=== PATIENT | female | born 1950 | race Caucasian/White ===

== ENCOUNTER 2023-02-09 11:28 | Outpatient (REF) | payer MEDICARE, BC, SELFPAY ==
[2023-02-09 14:07] LABS: Hematocrit 43.2 % (37.0-47.0); Hemoglobin 14.2 g/dl (12.0-16.0); Mean Corpuscular HGB Conc 32.9 g/dl (31.0-35.0); Mean Corpuscular Hemoglobin 30.2 pg (27.0-33.0); Mean Corpuscular Volume 91.9 fL (80.0-98.0); Mean Platelet Volume 10.7 fL (9.4-12.3); Platelet Count 334 X10*3/uL (160-400); Red Cell Distribution Width 11.9 % (11.0-16.0); White Blood Count 7.3 X10*3/uL (4.8-10.8)
[2023-02-09 14:29] LABS: Alanine Aminotransferase 15 U/L (0-31); Albumin Level 4.5 g/dL (3.5-5.0); Alkaline Phosphatase 85 U/L (39-117); Anion Gap 10 (12-20); Aspartate Amino Transferase 13 U/L (5-31); Bilirubin Total 0.6 mg/dL (0.0-1.0); Blood Urea Nitrogen 16 mg/dL (9-16); Calcium 10.6 mg/dL (8.4-10.2); Carbon Dioxide 28 mmol/L (22-29); Chloride 108 mmol/L (96-108); Cholesterol 168 mg/dL; Estimated Glomerular Filt Rate > 60; Glucose Fasting 106 mg/dL (60-99); HDL Cholesterol 46 mg/dL; LDL Cholesterol Calculated 79 mg/dl; Potassium 4.2 mmol/L (3.3-5.1); Sodium 142 mmol/L (135-145); Total Protein 7.2 g/dL (6.5-8.0); Triglycerides 217 mg/dL
[2023-02-09 14:34] LABS: TSH reflex Free T4 4.05 uIU/mL (0.32-4.0)
[2023-02-09 15:07] LABS: Free T4 (Free Thyroxine) 0.95 ng/dL (0.71-1.85)
== END 2023-02-09 11:29 | disposition home or self-care (01) ==
LOC: HO.HMGCLDS 11:28
PROVIDERS: PCP Hospitalist; Visit Provider Hospitalist
DX: Z00.00 Encounter for general adult medical examination without abnormal findings (principal)
CPT/HCPCS: 36415; 80053; 80061; 84439; 84443; 85027

== ENCOUNTER 2023-12-03 16:04 | Outpatient (AMB) | payer MEDICARE, BC, SELFPAY ==
--- NOTE | 2023-12-03 16:08 | A.OFFPC_ITS ---
Vital Signs 12/03/23 16:09 Height 5 ft 2 in Weight 134 lb 6 oz BMI 24.6 BP 134/76 Blood Pressure Location Rt brachial Position Sitting Respiration 13 Pulse 67 Pulse Source Pulse Oximeter Temp 98 F Temp Source Temporal Artery Scan Pulse Oximetry (%) 94 Oxygen Delivery Method Room Air Intake Visit Reasons: Transfer Of Care Dr. 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: No Accompanied by: Self / Same As Patient Allergies Seasonal Allergies Allergy (Severe, Verified 12/03/23 16:31) Wheezing Penicillins Allergy (Mild, Verified 12/03/23 16:31) Rash Medication List - Last Reconciled 12/03/23 by Stu Rawls CNP albuterol sulfate 90 mcg/actuation 2 puffs inhalation Q4-6H PRN aspirin 81 mg PO DAILY atorvastatin 40 mg PO DAILY losartan 100 mg PO DAILY melatonin 2.5 mg PO TID PRN pumthkswrakv-irlvnwfi-gwdmti 1 tab PO DAILY oxybutynin chloride ER 5 mg PO DAILY psyllium husk (aspartame) 3.4 gram/5.8 gram (Metamucil [facility] Fiber) PO sertraline 100 mg PO DAILY trazodone 50 mg PO BID PRN 1 month umeclidinium-vilanterol 62.5-25 mcg/actuation (Anoro Ellipta) 1 inh inhalation DAILY 1 month Tobacco use date assessed: 12/03/23 Fall risk assessment: No Falls in past year Last assessed Fall Risk: 12/03/23 Dental Screening Dental Screen Date: 12/03/23 Did you have a dental visit in the last 12 months?: No Did you have a dental problem in the last 6 months where you did not have access to dental care?: No Was dental information given to patient?: Patient declined HPI HPI Comments History of Present Illness Details 73-year-old female presents for transfer of care Her former PCP is TC who is no longer with the practice She has history of hypertension, hypercholesterolemia, COPD, asthma, acid reflux, memory loss, overactive bladder, anxiety, and depression She is not followed by a therapist or psychiatrist. She had therapy in the past but did not find it useful She admits to taking her medications as prescribed without adverse reactions She reports sudden onset of right-sided back which started about a week ago and has progressively worsened. He described the pain as a constant ache. She took 200mg of Ibuprofen the past 2 night with minimal relief. He denies fall, injury, or trauma She reports difficulty breathing daily since she relocated to [facility] past 2 years ago. She has been using Anoro Ellipta with some improvement She also reports persistent tingling and numbness to both feet for the past 2 years [facility] Medical History (Updated 12/03/23 @ 16:57 by Stu Rawls CNP) Tremors of nervous system Acid reflux Incontinence Hypercholesterolemia Hypertension Depression Anxiety Memory loss Asthma COPD (chronic obstructive pulmonary disease) Surgical History No pertinent past surgical history Family History Mother Cardiovascular disease Asthma Hypertension Hypercholesterolemia Brother Psychiatric illness Social History Housing: Apartment Alcohol intake: never Patient Tobacco Use Status: Former Tobacco user e-Cigarette/Vaping Use: Never Used Current occupational status: disabled Questionnaire PHQ-9 Over the last 2 weeks, how often have you been bothered by any of the following problems? 1. Little interest or pleasure in doing things: nearly every day 2. Feeling down, depressed, or hopeless: several days 3. Trouble falling or staying asleep, or sleeping too much: several days 4. Feeling tired or having little energy: several days 5. Poor appetite or overeating: several days 6. Feeling bad about yourself - or that you are a failure or have let yourself or your family down: several days 7. Trouble concentrating on things, such as reading the newspaper or watching television: several days 8. Moving or speaking so slowly that other people could have noticed. Or the opposite - being so fidgety or restless that you have been moving around a lot more than usual: not at all 9. Thoughts that you would be better off or of hurting yourself in some way: not at all Total score: 9 Depression Screening Interpretation: Positive Depression Screening Follow-up: Existing condition and In treatment Depression Screening Done: Yes 42725 - PHQ-9 Billing: Yes Source: Developed by Drs. Hang Murdock, Rani Cowan, Ralph Talbert and colleagues, with an educational edgar from [employer]. Thrive Questionnaire Date Thrive assessed: 12/03/23 I am a: Patient What is your living situation today?: I have a steady place to live Within the past 12 months, did the food you bought not last and you didn't have the money to get more?: Never true Within the past 12 months, did you worry whether your food would run out before you got money to buy more?: Never true Do you have trouble paying for medicines?: No Do you have trouble getting transportation to medical appointments?: No Do you have trouble paying your heating and electricity bill?: No Do you have trouble taking care of your child, family member or friend?: No Do you have trouble with day-to-day activities such as bathing, preparing meals, shopping, managing finances, etc.?: Yes Are you currently unemployed and looking for a job?: No Are you interested in more education?: No Please select the resources that you would like help with: Daily support Currently or been in a relationship where the following occur: no concerns reported THRIVE Score: 0 AUDIT C Alcohol Use Questionnaire (AUDIT-C) 1. How often do you have a drink containing alcohol?: Never 3. How often do you have six or more drinks on one occasion?: Never Total Score: 0 LEONILA-7 AMB Questionnaire LEONILA-7 Date LEONILA - 7 assessed: 12/03/23 Feeling nervous, anxious, or on edge: 1 = Several days Not being able to stop or control worryin = Several days Worrying too much about different things: 1 = Several days Trouble relaxin = Nearly every day Being so restless that it is hard to sit still: 1 = Several days Becoming easily annoyed or irritable: 1 = Several days Feeling afraid as if something awful might happen: 0 = Not at all Total LEONILA-7 score (0-4 normal; 5-9 mild; 10-14 moderate; 15-21 severe): 8 Source: Developed by Drs. Hang Murdock, Rani Cowan, Ralph Talbert and colleagues, with an educational edgar from [employer]. LEONILA-7 Assessment Billing LEONILA-7 Assessment Tool: LEONILA-7 Assessment 91641 ACT Questionnaire In the past 4 weeks, how much of the time did your asthma keep you from getting as much done at work, school or at home?: All of the time During the past 4 weeks, how often have you had shortness of breath?: More than once a day During the past 4 weeks, how often did your asthma symptoms wake you up at night or earlier than usual in the morning?: Not at all During the past 4 weeks, how often have you had to use your rescue inhaler or nebulizer medication?: Not at all How would you rate your asthma control during the past 4 weeks?: Well controlled ACT Interpretation: Positive Score: 16 Review of Systems Const Details: Const Denies chills, Denies fatigue, Denies fever(s), Denies headache(s) and Denies weakness ENT Denies dizziness and Denies headache(s) Card Denies chest pain, Denies lightheadedness, Denies dyspnea and Denies other (Palpitations) Resp Denies cough, Denies dyspnea, Denies wheezing and Denies other ( shortness of breath) GI Denies abdominal pain, Denies melena, Denies hematochezia, Denies change in bowel habits, Denies dyspepsia and Denies nausea Denies hematuria and Denies dysuria Musc Reports as per HPI Skin/Breast Denies rash, Denies unusual bruising and Denies wounds Neuro Denies abnormal gait, Denies dizziness, Denies headache(s), Denies memory loss, Denies numbness, Denies Sensory deficit (Neuro), Denies tingling and Denies weakness Psych Denies anxiety, Denies depression, Denies memory loss Endo Denies cold intolerance, Denies fatigue, Denies heat intolerance, Denies polydipsia and Denies polyuria Aller/Immun Denies wheezing Physical exam (Primary Care) Tobacco/Smoking Status: Tobacco use Status Tobacco use date assessed 01/03/23 09/27/23 16:37 Patient Tobacco Use Status Former Tobacco user 09/27/23 16:37 e-Cigarette/Vaping Use Never Used 09/27/23 16:37 Depression Screening Interpretation: Positive Depression Screening Follow-up: Existing condition and In treatment Currently or been in a relationship where the following occur: no concerns reported Const Other: General: no acute distress and well developed Nutritional Appearance: well nourished Orientation/consciousness: patient oriented x3 HENMT Head: Yes normocephalic and Yes atraumatic Eyes General: appearance normal, both eyes and all related structures Pupils: Equal, round and reactive pupils present EOM: EOMs intact bilaterally Resp Effort & Inspection: normal respiratory effort Auscultation: clear to auscultation bilaterally Cardio Rate: regular rate Rhythm: regular rhythm Heart sounds: S1 normal heart sound present, S2 normal heart sound present, no gallops, no murmurs and no rubs GI Palpation (GI): No Abdominal aortic bruit present, Soft to palpation, nontender, No hepatosplenomegaly present and No Rebound tenderness present Auscultation: normal bowel sounds General: Yes no CVA tenderness Back/Spine/Pelvis Back: no CVA tenderness Cervical Spine: cervical ROM normal and No Cervical spine tenderness Thoracic/Lumbar Spine: thoraco-lumbar ROM normal, No pain with thoraco-lumbar ROM, No thoracic spinal tenderness and No lumbar spinal tenderness Extrem General: Yes normal to inspection, No edema and No calf tenderness Skin General: warm and dry. Normal skin color. Normal skin turgor Neuro General: patient oriented x3, gait normal and no focal neuro deficit Cranial nerves: Yes Equal, round and reactive pupils present Cognition (Neuro): normal cognition Gait exam (Neuro): Normal gait present Sensory Exam: No Sensory deficit (Neuro) Psych Appearance: grossly normal Affect: normal affect Attitude: cooperative Thought process: Normal thought process present Assessment and Plan Assessment & Plan (1) Hypertension: Code(s): I10 - Essential (primary) hypertension Plan: Blood pressure is controlled, 134/76 Continue current treatment regimen Low-sodium diet encouraged Verbalized understanding and agreed with treatment plan (2) Anxiety with depression: Code(s): F41.8 - Other specified anxiety disorders Plan: Reports controlled anxiety and depression symptoms on current regimen PHQ-9 and LEONILA-7 scores revealed mild depression and anxiety respectively Continue current treatment Routine exercise encouraged Follow-up with worsening or new symptoms Verbalized understanding and agreed with treatment plan (3) Right-sided back pain: Code(s): M54.9 - Dorsalgia, unspecified Plan: Reports sudden onset of right-sided back which started x 1 week. No fall, injury, trauma No overt injury or trauma noted. No tenderness to palpation Naproxen ordered. Take as prescribed Warm/cold compresses encouraged Follow-up with worsening or new symptoms Verbalized understanding and agreed with treatment plan (4) Paresthesia of both feet: Code(s): R20.2 - Paresthesia of skin Plan: Reports persistent tingling and numbness to both feet for the past 2 years Likely neuropathic pain Gabapentin ordered. Take as prescribed Will check labs Follow-up with worsening or new symptoms Verbalized understanding and agreed with treatment plan (5) Laboratory tests ordered as part of a complete physical exam (CPE): Code(s): Z00.00 - Encounter for general adult medical examination without abnormal findings Plan: Fasting labs ordered in preparation of a complete physical exam. Advised to fast for at least 10 hours before getting labs drawn. May drink water Verbalized understanding and agreed with treatment plan. (6) COPD (chronic obstructive pulmonary disease): Code(s): J44.9 - Chronic obstructive pulmonary disease, unspecified Plan: Reports difficulty breathing daily since she relocated to [facility] past 2 years ago Anoro Ellipta has been providing some relief Continue to use Anoro Ellipta as prescribed Referred to pulmonology Follow-up with worsening or New symptoms verbalized understanding and agreed with treatment plan Orders: Orders Complete Blood Count Auto Diff Today Z00.00 - Encounter for general adult medical examination without abnormal findings Comprehensive [place]. Panel Fast Today Z00.00 - Encounter for general adult medical examination without abnormal findings Lipid Panel Today Z00.00 - Encounter for general adult medical examination without abnormal findings TSH reflex Free T4 Today Z00.00 - Encounter for general adult medical examination without abnormal findings UA CC w/rflx Micro + Cult Today Z00.00 - Encounter for general adult medical examination without abnormal findings Referrals Pulmonology Referral J44.9 - Chronic obstructive pulmonary disease, unspecified Medications: New naproxen 500 mg PO BID PRN 60 tabs 0RF pain gabapentin 200 mg (2 x 100 mg) PO BEDTIME 60 caps 0RF 30 days Coding Level of Care Code Est Pt Level 4 (57414) Diagnoses Hypertension I10 Anxiety with depression F41.8 Right-sided back pain M54.9 Paresthesia of both feet R20.2 Laboratory tests ordered as part of a complete physical exam (CPE) Z00.00 COPD (chronic obstructive pulmonary disease) J44.9 Additional Codes LEONILA-7 Assessment Billing - LEONILA-7 Assessment Tool: LEONILA-7 Assessment 13351 ([id number])
[2023-12-03 16:09] VITALS: BP 134/76; PULSE 67; RESP 13; TEMP 36.6; O2SAT 94; BMI 24.6
== END 2023-12-03 16:51 | disposition home or self-care (01) ==
PROVIDERS: PCP Hospitalist; Visit Provider Nurse Practitioner Family
DX: I10 Essential (primary) hypertension (principal); J44.9 Chronic obstructive pulmonary disease, unspecified; F41.8 Other specified anxiety disorders; M54.9 Dorsalgia, unspecified; R20.2 Paresthesia of skin
CPT/HCPCS: 99214

== ENCOUNTER 2024-04-22 17:25 | Outpatient (AMB) | payer MEDICARE, BC, SELFPAY ==
--- NOTE | 2024-04-22 17:26 | MHC.PC.OV ---
Vital Signs 04/22/24 17:35 04/22/24 18:01 Height 5 ft 2 in Weight 130 lb 1 oz BMI 23.8 BP 140/64 H 130/70 Blood Pressure Location Rt brachial Rt brachial Position Sitting Sitting Respiration 16 Pulse 65 Pulse Source Pulse Oximeter Temp 97.8 F Temp Source Oral Pulse Oximetry (%) 90 L Oxygen Delivery Method Room Air Intake Visit Reasons: FollowUp pain, difficulty breathing Intake Note: patient here for follow up on pain and difficulty breathing. Solution Make Up Operator Required: No Is last menstrual period known: No Post menopausal: No Patient : No Allergies Seasonal Allergies Allergy (Severe, Verified 04/22/24 17:47) Wheezing Penicillins Allergy (Mild, Verified 04/22/24 17:47) Rash Medication List - Last Reconciled 04/22/24 by Stu Rawls CNP albuterol sulfate 90 mcg/actuation 2 puffs inhalation Q4-6H PRN aspirin 81 mg PO DAILY atorvastatin 40 mg PO DAILY gabapentin 200 mg (2 x 100 mg) PO BEDTIME 30 days losartan 100 mg PO DAILY melatonin 2.5 mg PO TID PRN beyqnmnwvcyo-lhquwyuq-raigbs 1 tab PO DAILY naproxen 500 mg PO BID PRN oxybutynin chloride ER 5 mg PO DAILY psyllium husk (aspartame) 3.4 gram/5.8 gram (Metamucil [facility] Fiber) PO sertraline 100 mg PO DAILY trazodone 50 mg PO BID PRN 1 month umeclidinium-vilanterol 62.5-25 mcg/actuation (Anoro Ellipta) 1 inh inhalation DAILY 1 month Tobacco use date assessed: 04/22/24 Fall risk assessment: No Falls in past year Last assessed Fall Risk: 04/22/24 Dental Screening Dental Screen Date: 12/03/23 HPI HPI Comments History of Present Illness Details 73-year-old female presents with complaints of difficulty breathing which she attributes to the warm climate. She notes that she has been taking Zyrtec daily and has been using Anoro Ellipta as prescribed with significant relief. She offers no complaints and denies acute symptoms at this time. She notes that she has been taking her routine meds as prescribed, although some of them have not been refilled in a while [facility] Medical History Tremors of nervous system Acid reflux Incontinence Hypercholesterolemia Hypertension Depression Anxiety Memory loss Asthma COPD (chronic obstructive pulmonary disease) Surgical History No pertinent past surgical history Family History Mother Cardiovascular disease Asthma Hypertension Hypercholesterolemia Brother Psychiatric illness Other Mental health disorder Social History Housing: Apartment Alcohol intake: never Patient Tobacco Use Status: Former Tobacco user e-Cigarette/Vaping Use: Never Used Patient : No service: No Current occupational status: disabled Cognitive needs: No Hearing needs: No Vision needs: No Questionnaire Thrive Questionnaire Date Thrive assessed: 12/03/23 AUDIT C Alcohol Use Questionnaire (AUDIT-C) 1. How often do you have a drink containing alcohol?: Never Total Score: 0 Score Reviewed/Action Taken: Yes LEONILA-7 AMB Questionnaire LEONILA-7 Date LEONILA - 7 assessed: 12/03/23 Source: Developed by Drs. Hang Murdock, Rani Cowan, Ralph Talbert and colleagues, with an educational edgar from [employer]. Review of Systems Const Details: Const Denies chills, Denies fatigue, Denies fever(s), Denies headache(s) and Denies weakness ENT Denies dizziness and Denies headache(s) Card Denies chest pain, Denies lightheadedness, Denies dyspnea and Denies other (Palpitations) Resp Denies cough, Denies dyspnea, Denies wheezing and Denies other ( shortness of breath) GI Denies abdominal pain, Denies melena, Denies hematochezia, Denies change in bowel habits, Denies dyspepsia and Denies nausea Denies hematuria and Denies dysuria Musc Denies abnormal gait, Denies myalgias, Denies arthralgias, Denies numbness and Denies tingling Skin/Breast Denies rash, Denies unusual bruising and Denies wounds Neuro Denies abnormal gait, Denies dizziness, Denies headache(s), Denies memory loss, Denies numbness, Denies Sensory deficit (Neuro), Denies tingling and Denies weakness Psych Denies anxiety, Denies depression, Denies memory loss Endo Denies cold intolerance, Denies fatigue, Denies heat intolerance, Denies polydipsia and Denies polyuria Aller/Immun Denies wheezing Physical exam (Primary Care) Vital Signs: Last Vital Signs Temp 97.8 F 04/22/24 17:35 Pulse 65 04/22/24 17:35 Resp 16 04/22/24 17:35 BP 140/64 H 04/22/24 17:35 Pulse Ox 90 L 04/22/24 17:35 Oxygen Delivery Method Room Air 04/22/24 17:35 BMI result Body Mass Index 23.8 Tobacco/Smoking Status: Tobacco use Status Tobacco use date assessed 04/22/24 04/22/24 17:34 Patient Tobacco Use Status Former Tobacco user 04/22/24 17:28 e-Cigarette/Vaping Use Never Used 04/22/24 17:28 Thrive Assessment: Date of Thrive Assessment Date Thrive assessed 12/03/23 04/22/24 17:28 Const Other: General: no acute distress and well developed Nutritional Appearance: well nourished Orientation/consciousness: patient oriented x3 HENMT Head: Yes normocephalic and Yes atraumatic Eyes General: appearance normal, both eyes and all related structures Pupils: Equal, round and reactive pupils present EOM: EOMs intact bilaterally Resp Effort & Inspection: normal respiratory effort Auscultation: clear to auscultation bilaterally Cardio Rate: regular rate Rhythm: regular rhythm Heart sounds: S1 normal heart sound present, S2 normal heart sound present, no gallops, no murmurs and no rubs GI Palpation (GI): No Abdominal aortic bruit present, Soft to palpation, nontender, No hepatosplenomegaly present and No Rebound tenderness present Auscultation: normal bowel sounds General: Yes no CVA tenderness Back/Spine/Pelvis Back: no CVA tenderness Cervical Spine: cervical ROM normal and No Cervical spine tenderness Thoracic/Lumbar Spine: thoraco-lumbar ROM normal, No pain with thoraco-lumbar ROM, No thoracic spinal tenderness and No lumbar spinal tenderness Extrem General: Yes normal to inspection, No edema and No calf tenderness Skin General: warm and dry. Normal skin color. Normal skin turgor Neuro General: patient oriented x3, gait normal and no focal neuro deficit Cranial nerves: Yes Equal, round and reactive pupils present Cognition (Neuro): normal cognition Gait exam (Neuro): Normal gait present Sensory Exam: No Sensory deficit (Neuro) Psych Appearance: grossly normal Affect: normal affect Attitude: cooperative Thought process: Normal thought process present Assessment and Plan Assessment & Plan (1) Difficulty breathing: Code(s): R06.89 - Other abnormalities of breathing Plan: Difficulty breathing which she attributes to warm climate. Michael Vinson has been providing relief Albuterol inhaler ordered. Advised to use as prescribed for difficulty breathing Encouraged to get fasting lab work done before next visit Follow-up in 1 month for an extended physical exam or sooner with worsening or new symptoms Verbalized understanding and agreed with the treatment plan (2) Laboratory tests ordered as part of a complete physical exam (CPE): Code(s): Z00.00 - Encounter for general adult medical examination without abnormal findings Plan: Fasting labs ordered as part of a complete physical exam. Advised to fast for at least 10 hours before getting labs drawn. May drink water Verbalized understanding and agreed with treatment plan. Orders: Orders Complete Blood Count Auto Diff Today Z00.00 - Encounter for general adult medical examination without abnormal findings Comprehensive [place]. Panel Fast Today Z00.00 - Encounter for general adult medical examination without abnormal findings Lipid Panel Today Z00.00 - Encounter for general adult medical examination without abnormal findings UA CC w/rflx Micro + Cult Today Z00.00 - Encounter for general adult medical examination without abnormal findings TSH reflex Free T4 Today Z00.00 - Encounter for general adult medical examination without abnormal findings Microalbumin, Random (w Creat) Today Z00.00 - Encounter for general adult medical examination without abnormal findings Medications: Refilled albuterol sulfate 90 mcg/actuation 2 puffs inhalation Q4-6H PRN 8.5 grams 4RF shortness of breath or wheezing J44.9 - Chronic obstructive pulmonary disease, unspecified Coding Level of Care Code Tele Est Pt Level 3 (31193) Diagnoses Difficulty breathing R06.89 Laboratory tests ordered as part of a complete physical exam (CPE) Z00.00
[2024-04-22 17:35] VITALS: BP 140/64; PULSE 65; RESP 16; TEMP 36.6; O2SAT 90; BMI 23.8
[2024-04-22 18:01] VITALS: BP 130/70
== END 2024-04-22 18:06 | disposition home or self-care (01) ==
PROVIDERS: Visit Provider Nurse Practitioner Family
DX: R06.89 Other abnormalities of breathing (principal)
CPT/HCPCS: 99213

== ENCOUNTER 2025-04-24 12:24 | Outpatient (AMB) | payer MEDICARE, BC, SELFPAY ==
--- NOTE | 2025-04-24 12:28 | A.OFFPC_ITS ---
Vital Signs 04/24/25 12:36 Height 5 ft 2 in Weight 130 lb 6 oz BMI 23.8 BP 138/72 Blood Pressure Location Lt brachial Position Sitting Respiration 17 Pulse 71 Pulse Source Pulse Oximeter Temp 97.6 F Temp Source Temporal Artery Scan Pulse Oximetry (%) 95 Oxygen Delivery Method Room Air Intake Visit Reasons: ER [facility] / Fell and broke two toes Intake Note: Glenny presents in the office for an ER follow up to a fall and broken toes. Allergies Seasonal Allergies Allergy (Severe, Verified 04/24/25 12:47) Wheezing Penicillins Allergy (Mild, Verified 04/24/25 12:47) Rash Medication List - Last Reconciled 04/24/25 by Stu Rawls CNP albuterol sulfate 90 mcg/actuation 2 puffs inhalation Q4-6H PRN aspirin 81 mg PO DAILY atorvastatin 40 mg PO DAILY esomeprazole magnesium (Nexium 24HR) 20 mg PO DAILY gabapentin 200 mg (2 x 100 mg) PO BEDTIME 30 days lactobacillus combination no.9 (Adult 50 Plus Probiotic) 4,000 mmu cells PO DAILY losartan 100 mg PO DAILY melatonin 2.5 mg PO TID PRN pnafncuavxdo-smmwpmld-psurss 1 tab PO DAILY naproxen 500 mg PO BID PRN oxybutynin chloride ER 5 mg PO DAILY psyllium husk (Metamucil [facility] Fiber) PO sertraline 100 mg PO DAILY trazodone 50 mg PO BEDTIME PRN 30 days umeclidinium-vilanterol 62.5-25 mcg/actuation (Anoro Ellipta) 1 inh inhalation DAILY 1 month Tobacco use date assessed: 04/24/25 Fall risk assessment: 1 Fall in past year Last assessed Fall Risk: 04/24/25 Dental Screening Dental Screen Date: 04/24/25 Did you have a dental visit in the last 12 months?: No Did you have a dental problem in the last 6 months where you did not have access to dental care?: No Was dental information given to patient?: No HPI HPI Comments History of Present Illness Details 74-year-old female, accompanied by her s on, presents for ED follow-up visit. She was evaluated at [facility] ED on 03/27/2025 for an injury to her left 4th and 5th toes. Per ED note, she tripped at the last step going upstairs. She had pain and swelling mainly to the left pinky toe. X-ray revealed a displaced fracture of the left pinky toe and a nondisplaced fracture to the left 4th toe. She was neurovascularly intact. The toes were zahira-taped and was advised to wear orthopedic postop shoe. She was also advised to follow-up with orthopedic for re-evaluation and ongoing treatment. She notes that she tripped at the last step going upstairs the same day she presented to the ED. She reports pain to both left 4th and 5th toes and has been taking ibuprofen (2 tabs at 3am) and tylenol (2 tabs at 2pm) daily with some relief. She notes that this is the 2nd fall from a stair; in December, she fell from a stair in the garage. She has a cane for ambulation. According to his son, she does not use the cane often and did not use them both times she fell. She reports ongoing anxiety and depression symptoms which she attributes to being lonely in her home. She reports sleep disturbance; she wake ups every hour. She is currently on sertraline 100 mg daily and trazodone 50 mg daily. She has not followed by a psychiatrist or therapist. [facility] Medical History Tremors of nervous system Acid reflux Incontinence Hypercholesterolemia Hypertension Depression Anxiety Memory loss Asthma COPD (chronic obstructive pulmonary disease) Surgical History No pertinent past surgical history Family History Mother Cardiovascular disease Asthma Hypertension Hypercholesterolemia Brother Psychiatric illness Other Mental health disorder Social History (Updated 04/24/25 @ 12:36 by Silva Mills MA) Housing: Apartment Alcohol intake: never Patient Tobacco Use Status: Former Tobacco user e-Cigarette/Vaping Use: Never Used Second Hand Smoke Exposure: No service: No Current occupational status: disabled Cognitive needs: No Hearing needs: No Vision needs: No Questionnaire PHQ-9 Over the last 2 weeks, how often have you been bothered by any of the following problems? 1. Little interest or pleasure in doing things: not at all 2. Feeling down, depressed, or hopeless: nearly every day 3. Trouble falling or staying asleep, or sleeping too much: nearly every day 4. Feeling tired or having little energy: nearly every day 5. Poor appetite or overeating: nearly every day 6. Feeling bad about yourself - or that you are a failure or have let yourself or your family down: nearly every day 7. Trouble concentrating on things, such as reading the newspaper or watching television: nearly every day 8. Moving or speaking so slowly that other people could have noticed. Or the opposite - being so fidgety or restless that you have been moving around a lot more than usual: not at all 9. Thoughts that you would be better off or of hurting yourself in some way: not at all Total score: 18 Depression Screening Interpretation: Positive Depression Screening Follow-up: Existing condition, In treatment and Change in Medication Depression Screening Done: Yes 81672 - PHQ-9 Billing: Yes Source: Developed by Drs. Hang Murdock, Rani Cowan, Ralph Talbert and colleagues, with an educational edgar from [employer]. Thrive Questionnaire Date Thrive assessed: 04/24/25 I am a: Patient What is your living situation today?: I have a steady place to live Within the past 12 months, did the food you bought not last and you didn't have the money to get more?: Never true Within the past 12 months, did you worry whether your food would run out before you got money to buy more?: Never true Do you have trouble paying for medicines?: No Do you have trouble getting transportation to medical appointments?: No Do you have trouble paying your heating and electricity bill?: No Do you have trouble taking care of your child, family member or friend?: No Do you have trouble with day-to-day activities such as bathing, preparing meals, shopping, managing finances, etc.?: Yes Are you currently unemployed and looking for a job?: No Are you interested in more education?: No Please select the resources that you would like help with: None Currently or been in a relationship where the following occur: No concerns reported THRIVE Score: 0 AUDIT C Alcohol Use Questionnaire (AUDIT-C) 1. How often do you have a drink containing alcohol?: Never 3. How often do you have six or more drinks on one occasion?: Never Total Score: 0 LEONILA-7 AMB Questionnaire LEONILA-7 Date LEONILA - 7 assessed: 04/24/25 Feeling nervous, anxious, or on edge: 3 = Nearly every day Not being able to stop or control worryin = Nearly every day Worrying too much about different things: 3 = Nearly every day Trouble relaxin = Nearly every day Being so restless that it is hard to sit still: 0 = Not at all Becoming easily annoyed or irritable: 3 = Nearly every day Feeling afraid as if something awful might happen: 3 = Nearly every day Total LEONILA-7 score (0-4 normal; 5-9 mild; 10-14 moderate; 15-21 severe): 18 Source: Developed by Drs. Hang Murdock, Rani Cowan, Ralph Talbert and colleagues, with an educational edgar from [employer]. LEONILA-7 Assessment Billing LEONILA-7 Assessment Tool: LEONILA-7 Assessment 60093 Review of Systems Const Details: Const Denies chills, Denies fatigue, Denies fever(s), Denies headache(s) and Denies weakness ENT Denies dizziness and Denies headache(s) Card Denies chest pain, Denies lightheadedness, Denies dyspnea and Denies other (Palpitations) Resp Denies cough, Denies dyspnea, Denies wheezing and Denies other ( shortness of breath) GI Denies abdominal pain, Denies melena, Denies hematochezia, Denies change in shu wel habits, Denies dyspepsia and Denies nausea Denies hematuria and Denies dysuria Musc Reports as per HPI Skin/Breast Denies rash, Denies unusual bruising and Denies wounds Neuro Denies abnormal gait, Denies dizziness, Denies headache(s), Denies memory loss, Denies numbness, Denies Sensory deficit (Neuro), Denies tingling and Denies weakness Psych Reports anxiety, Reports depression, Denies memory loss Endo Denies cold intolerance, Denies fatigue, Denies heat intolerance, Denies polydipsia and Denies polyuria Aller/Immun Denies wheezing Physical exam (Primary Care) Vital Signs: Last Vital Signs Temp 97.6 F 04/24/25 12:36 Pulse 71 04/24/25 12:36 Resp 17 04/24/25 12:36 BP 138/72 04/24/25 12:36 Pulse Ox 95 04/24/25 12:36 Oxygen Delivery Method Room Air 04/24/25 12:36 BMI result Body Mass Index 23.8 Tobacco/Smoking Status: Tobacco use Status Tobacco use date assessed 04/24/25 04/24/25 12:36 Patient Tobacco Use Status Former Tobacco user 04/24/25 12:36 e-Cigarette/Vaping Use Never Used 04/24/25 12:36 PHQ-9: PHQ-9 Score PHQ-9: Total score 18 04/24/25 12:30 Depression Screening Interpretation: Positive Depression Screening Follow-up: Existing condition, In treatment and Change in Medication Thrive Assessment: Date of Thrive Assessment Date Thrive assessed 04/24/25 04/24/25 12:30 Currently or been in a relationship where the following occur: No concerns reported Const Other: General: no acute distress and well developed Nutritional Appearance: well nourished Orientation/consciousness: patient oriented x3 HENMT Head: Yes normocephalic and Yes atraumatic Eyes General: appearance normal, both eyes and all related structures Pupils: Equal, round and reactive pupils present EOM: EOMs intact bilaterally Resp Effort & Inspection: normal respiratory effort Auscultation: clear to auscultation bilaterally Cardio Rate: regular rate Rhythm: regular rhythm Heart sounds: S1 normal heart sound present, S2 normal heart sound present, no gallops, no murmurs and no rubs GI Palpation (GI): No Abdominal aortic bruit present, Soft to palpation, nontender, No hepatosplenomegaly present and No Rebound tenderness present Auscultation: normal bowel sounds General: Yes no CVA tenderness Back/Spine/Pelvis Back: no CVA tenderness Cervical Spine: cervical ROM normal and No Cervical spine tenderness Thoracic/Lumbar Spine: thoraco-lumbar ROM normal, No pain with thoraco-lumbar ROM, No thoracic spinal tenderness and No lumbar spinal tenderness Extrem Normal CMS to the left 4th and 5th toe Skin General: warm and dry. Normal skin color. Normal skin turgor Neuro General: patient oriented x3, gait normal and no focal neuro deficit Cranial nerves: Yes Equal, round and reactive pupils present Cognition (Neuro): normal cognition Gait exam (Neuro): Normal gait present Sensory Exam: No Sensory deficit (Neuro) Psych Appearance: grossly normal Affect: normal affect Attitude: cooperative Thought process: Normal thought process present Coding Level of Care Code Est Pt Level 4 (02680) Diagnoses Closed fracture of fourth toe of left foot S92.502A Closed fracture of fifth toe of left foot S92.502A Anxiety with depression F41.8 Sleep disturbance G47.9 Additional Codes LEONILA-7 Assessment Billing - LEONILA-7 Assessment Tool: LEONILA-7 Assessment 90972 ([id number]) PHQ-9 - 04612 - PHQ-9 Billing: Yes ([id number]) Assessment & Plan Assessment & Plan (1) Closed fracture of fourth toe of left foot: Code(s): S92.502A - Displaced unspecified fracture of left lesser toe(s), initial encounter for closed fracture Category: Medical Plan: Normal CMS to the left 4th and 5th toe. Repeat x-ray ordered. [place] [facility] [place] Naproxen 500 mg twice daily as needed ordered; advised to take as prescribed and with food. Instructed on the risks, benefits, and potential adverse reactions of the medication. Encouraged to continue to use ortho boot for ambulation. Advised to always utilize her cane for ambulation. Declines order for a walker at this time. Follow-up with worsening or new symptoms. Verbalized understanding and agreed with the plan. (2) Closed fracture of fifth toe of left foot: Code(s): S92.502A - Displaced unspecified fracture of left lesser toe(s), initial encounter for closed fracture Category: Medical Plan: Plan as above. (3) Anxiety with depression: Code(s): F41.8 - Other specified anxiety disorders Category: Medical Plan: She reports ongoing anxiety and depression symptoms which she attributes to being lonely in her home. She reports sleep disturbance; she wake ups every hour. She is currently on sertraline 100 mg daily and trazodone 50 mg daily. She has not followed by a psychiatrist or therapist. PHQ-9 and LEONILA-7 scores revealed moderately severe depression and severe anxiety respectively. Sertraline increased to 150 mg daily and trazodone increased to 100 mg daily; advised to take as prescribed. Routine exercise encouraged. Follow-up in 2 weeks or sooner with worsening or new symptoms. Verbalized understanding and agreed with the plan. (4) Sleep disturbance: Code(s): G47.9 - Sleep disorder, unspecified Category: Medical Plan: Plan as above. Orders: Orders XR foot LT min 3V Today S92.502A - Displaced unspecified fracture of left lesser toe(s), initial encounter for closed fracture Referrals Orthopedics Referral S92.502A - Displaced unspecified fracture of left lesser toe(s), initial encounter for closed fracture Medications: New sertraline Take with sertraline 100 mg daily to equal 125 mg daily 25 mg PO DAILY 30 tabs 3RF 30 days Changed From trazodone 50 mg PO BEDTIME 30 days PRN 30 tabs 11RF sleep F32.A - Depression, unspecified, F41.9 - Anxiety disorder, unspecified To trazodone 100 mg (2 x 50 mg) PO BEDTIME PRN 30 tabs 11RF sleep 30 days F32.A - Depression, unspecified, F41.9 - Anxiety disorder, unspecified Refilled naproxen 500 mg PO BID PRN 60 tabs 2RF pain
[2025-04-24 12:36] VITALS: BP 138/72; PULSE 71; RESP 17; TEMP 36.4; O2SAT 95; BMI 23.8
== END 2025-04-24 13:12 | disposition home or self-care (01) ==
LOC: HO.HMCFM 12:25
PROVIDERS: PCP Nurse Practitioner Family; Visit Provider Nurse Practitioner Family
DX: S92.502A Displaced unspecified fracture of left lesser toe(s), initial encounter for closed fracture (principal); F41.8 Other specified anxiety disorders; G47.9 Sleep disorder, unspecified

== ENCOUNTER → 2025-04-24 12:24 | Outpatient (BNVA) | payer MEDICARE, BC, SELFPAY | PROVIDERS: Visit Provider Nurse Practitioner Family | DX: S92.502D Displaced unspecified fracture of left lesser toe(s), subsequent encounter for fracture with routine healing (principal); F41.8 Other specified anxiety disorders; G47.9 Sleep disorder, unspecified | CPT/HCPCS: 96127; 99212 ==